=== PATIENT | male | born 1955 | race Caucasian/White ===

== ENCOUNTER 2023-09-15 14:46 | Outpatient (OUT) | payer MEDICARE, SELFPAY ==
--- NOTE | 2023-09-15 | XR_ITS ---
The [address] [address] Patient Name: JESSICA DONIS MRN: [id number] date: 1955 Sex: M Assigned Patient Location: [facility] Current Patient Location: Accession/Order Number: [id number] Exam Date: 09/15/2023 15:08 Report Date: 09/16/2023 18:32 At the request of: MITCHELL BERMEO Procedure: XR foot LT min 3V EXAM: XR foot LT min 3V HISTORY: LEFT FOOT PAIN COMPARISON: None. FINDINGS/IMPRESSION: 1. No acute fracture or dislocation 2. Moderate degeneration at the first metatarsophalangeal joint. Mild degeneration at the first interphalangeal joint. 3. Small calcaneal Achilles enthesophyte. Moderate calcaneal plantar enthesophyte. Mild degeneration of the mid foot. 4. No ankle joint effusion. Electronically authenticated by: JOHNNY BEAVER Date: 09/16/2023 18:32
== END 2023-09-15 14:47 | disposition home or self-care (01) ==
LOC: RAD 14:48
PROVIDERS: Visit Provider Podiatrist Foot & Ankle Surgery
DX: M79.672 Pain in left foot (principal)
CPT/HCPCS: 73630

== ENCOUNTER 2024-05-15 19:33 | Emergency (ER) | payer MEDICARE, SELFPAY ==
[2024-05-15 19:35] VITALS: BP 159/77; PULSE 81; TEMP 37; O2SAT 98; BMI 32.5
--- NOTE | 2024-05-15 19:51 | XR_ITS ---
The [address] [address] Patient Name: JESSICA DONIS MRN: [id number] date: 1955 Sex: M Assigned Patient Location: ER Current Patient Location: ER Accession/Order Number: [id number] Exam Date: 05/15/2024 20:30 Report Date: 05/15/2024 21:08 At the request of: WENDY LAZO Procedure: XR thoracic spine 3V Exam: Radiographs: XR thoracic spine 3V, XR lumbar spine 2-3V Reason for exam: pain Comparison: None XR/XR thoracic spine 3V IMPRESSION: No radiographically evident thoracic spine fractures. L4 superior endplate compression fracture with mild height loss is favored to be chronic, correlate clinically. No thoracic spine malalignment. Grade 1 anterolisthesis of L4 on L5. Grade 1 retrolisthesis of L1 on L2 and L2 on L3. Degenerative changes throughout the thoracic and lumbar spine with relatively preserved intervertebral disc heights. Thoracic spine bridging osteophytes that may represent DISH. Remainder unremarkable. Electronically authenticated by: RENETTA CAMEJO Date: 05/15/2024 21:08
--- NOTE | 2024-05-15 19:51 | XR_ITS ---
The [address] [address] Patient Name: JESSICA DONIS MRN: [id number] date: 1955 Sex: M Assigned Patient Location: ER Current Patient Location: ER Accession/Order Number: [id number] Exam Date: 05/15/2024 20:30 Report Date: 05/15/2024 21:08 At the request of: WENDY LAZO Procedure: XR lumbar spine 2-3V Exam: Radiographs: XR thoracic spine 3V, XR lumbar spine 2-3V Reason for exam: pain Comparison: None XR/XR lumbar spine 2-3V IMPRESSION: No radiographically evident thoracic spine fractures. L4 superior endplate compression fracture with mild height loss is favored to be chronic, correlate clinically. No thoracic spine malalignment. Grade 1 anterolisthesis of L4 on L5. Grade 1 retrolisthesis of L1 on L2 and L2 on L3. Degenerative changes throughout the thoracic and lumbar spine with relatively preserved intervertebral disc heights. Thoracic spine bridging osteophytes that may represent DISH. Remainder unremarkable. Electronically authenticated by: RENETTA CAMEJO Date: 05/15/2024 21:08
--- NOTE | 2024-05-15 19:53 | ED.BACK1 ---
HPI HPI - Back Pain/Injury General Chief Complaint: Back Pain/Injury Stated Complaint: Back Pain Time Seen by Provider: 05/15/24 19:39 Source: patient Mode of arrival: walk-in Limitations: no limitations History of Present Illness HPI Narrative: 68 year old male presents to the ED for left lower back pain. Onset was one week ago when getting out of his tractor. Denies falling, weakness, urinary sx. Denies change in bowel and/or bladder control. Denies saddle anesthesia. Reports N/T to his right upper outer leg today. He has been to his chiropractor twice. Reports feeling much better this morning. He was then unable to get himself up off the commode. He is accompanied by family. Related Data Home Medications ?Medication ?Instructions ?Recorded ?Confirmed allopurinol 100 mg tablet 300 mg PO DAILY 05/15/24 05/15/24 diltiazem HCl 300 mg 300 mg PO DAILY 05/15/24 05/15/24 capsule,extended release 24 hr indomethacin 50 mg capsule 50 mg PO TID PRN pain 05/15/24 05/15/24 lisinopril 10 mg tablet 10 mg PO DAILY 05/15/24 05/15/24 lovastatin 20 mg tablet 20 mg PO DAILY 05/15/24 05/15/24 Previous Rx's ?Medication ?Instructions ?Recorded ibuprofen 800 mg tablet 800 mg PO Q8H PRN pain #20 tabs 05/15/24 methocarbamol 500 mg tablet 500 mg PO Q8H PRN pain #20 tabs 05/15/24 Allergies Allergy/AdvReac Type Severity Reaction Status Date / Time No Known Drug Allergies Allergy Verified 05/15/24 19:44 Opioid HPI Opioid Management Most Recent Opioid Data: Last Pain Scale 5 05/15/24 20:00 Last ED Pain Assessment 05/15/24 19:47 Review of Systems ROS Constitutional Denies: fever or chills Cardiovascular Denies: chest pain Respiratory Denies: shortness of breath Gastrointestinal Denies: abdominal pain Genitourinary Denies: painful urination, urinary frequency, urinary urgency or blood in urine Musculoskeletal Reports: back pain; Denies: neck pain, extremity pain, extremity swelling or muscle weakness Neurological Reports: numbness in extremities; Denies: headache, weakness in extremities, lack of coordination or dizziness Exam Constitutional Vital Signs, click to edit/add: Last Vital Signs Temp 98.6 F 05/15/24 19:35 Pulse 68 05/15/24 20:41 Resp 20 05/15/24 20:41 BP 152/65 H 05/15/24 20:41 Pulse Ox 99 05/15/24 20:41 O2 Del Method Room Air 05/15/24 20:41 Common normals: no apparent distress and oriented x3 General appearance: cooperative Eye Common normals: no scleral icterus Neck & C-Spine Common normals: supple Chest Chest: symmetrical chest wall rise Respiratory Common normals: normal respiratory effort Effort & inspection: symmetric chest movement Cardio Common normals: regular rate Back & Pelvis Thoracic spine/upper back: normal to inspection, paraspinal muscle tenderness Thoracic paraspinal muscle tenderness: left and paraspinal muscle spasm Thoracic paraspinal muscle spasm: left; no thoracic spinal tenderness Lumbar spine/lower back: normal to inspection, paraspinal muscle tenderness Lumbar paraspinal muscle tenderness: left and paraspinal muscle spasm Lumbar paraspinal muscle spasm: left; no lumbar spinal tenderness Neuro Common normals: oriented x3 and moves all extremities Sensorium/orientation: awake and alert Speech: speech normal Course Vital Signs Vital signs: Vital Signs Temperature 98.6 F 05/15/24 19:35 Pulse Rate 81 05/15/24 19:35 Respiratory Rate 18 05/15/24 19:35 Blood Pressure 159/77 H 05/15/24 19:35 Pulse Oximetry 98 05/15/24 19:35 Oxygen Delivery Method Room Air 05/15/24 19:35 Temperature 98.6 F 05/15/24 19:35 Pulse Rate 68 05/15/24 20:41 Respiratory Rate 20 05/15/24 20:41 Blood Pressure 152/65 H 05/15/24 20:41 Pulse Oximetry 99 05/15/24 20:41 Oxygen Delivery Method Room Air 05/15/24 20:41 MDM - Back Pain/Injury MDM Narrative Medical decision making narrative: X-ray showed L4 superior endplate compression fracture with mild height loss is favored to be chronic. Findings were discussed. He was given medication with improvement. 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 He was encouraged to follow up with his pcp for a recheck, further evaluation and treatment. Discharge instructions and prescriptions were provided by the ED physician. Differential Diagnosis Differential diagnosis: Likely lumbar radiculopathy, strain of lumbar region and thoracic back pain Medical Records Attestation: I reviewed the patient's medical records. Imaging Data XR : Attestation: I have reviewed the pertinent imaging results. Radiologist's impression: ITS Impressions Lumbar Spine X-Ray 05/15/24 19:51 IMPRESSION: No radiographically evident thoracic spine fractures. L4 superior endplate compression fracture with mild height loss is favored to be chronic, correlate clinically. No thoracic spine malalignment. Grade 1 anterolisthesis of L4 on L5. Grade 1 retrolisthesis of L1 on L2 and L2 on L3. Degenerative changes throughout the thoracic and lumbar spine with relatively preserved intervertebral disc heights. Thoracic spine bridging osteophytes that may represent DISH. Remainder unremarkable. Electronically authenticated by: RENETTA CAMEJO Date: 05/15/2024 21:08 Thoracic Spine X-Ray 05/15/24 19:51 IMPRESSION: No radiographically evident thoracic spine fractures. L4 superior endplate compression fracture with mild height loss is favored to be chronic, correlate clinically. No thoracic spine malalignment. Grade 1 anterolisthesis of L4 on L5. Grade 1 retrolisthesis of L1 on L2 and L2 on L3. Degenerative changes throughout the thoracic and lumbar spine with relatively preserved intervertebral disc heights. Thoracic spine bridging osteophytes that may represent DISH. Remainder unremarkable. Electronically authenticated by: RENETTA CAMEJO Date: 05/15/2024 21:08 Discharge Plan Discharge Stand Alone Forms: Work/School Release, Portal Instructions Chief Complaint: Back Pain/Injury Clinical Impression: Muscle strain Patient Disposition: Home, Self-Care Time of Disposition Decision: 21:18 Condition: Good Mode of Transportation: Private Vehicle Prescriptions / Home Meds: New methocarbamol 500 mg tablet 500 mg PO Q8H PRN (Reason: pain) Qty: 20 0RF ibuprofen 800 mg tablet 800 mg PO Q8H PRN (Reason: pain) Qty: 20 0RF No Action allopurinol 100 mg tablet 300 mg PO DAILY diltiazem HCl 300 mg capsule,extended release 24hr 300 mg PO DAILY indomethacin 50 mg capsule 50 mg PO TID PRN (Reason: pain) lisinopril 10 mg tablet 10 mg PO DAILY lovastatin 20 mg tablet 20 mg PO DAILY Print Language: Albanian Referrals: Physician,Non-Staff, MD [Primary Care Provider] - 1 week
[2024-05-15] MEDS: TIZANIDINE HCL 4 MG TABLET PO (20:00)
[2024-05-15] MEDS: KETOROLAC TROMETHAMINE 30 MG/ML VIAL IM (20:00)
[2024-05-15] MEDS: LIDOCAINE 5% PATCH 1 PATCH TOPICAL (20:00)
[2024-05-15] MEDS: DEXAMETHASONE SOD PHOS 10 MG/ML VIAL IM (20:01)
[2024-05-15 20:41] VITALS: BP 152/65; PULSE 68; O2SAT 99
== END 2024-05-15 21:29 | disposition home or self-care (01) ==
PROVIDERS: Emergency Provider Emergency Medicine
DX: S39.012A Strain of muscle, fascia and tendon of lower back, initial encounter (principal); X58.XXXA Exposure to other specified factors, initial encounter
CPT/HCPCS: 72072; 72100; 96372; 99284; J1100; J1885